=== PATIENT | male | born 1960 | race African-American/Black ===

== ENCOUNTER 2021-04-09 15:08 | Emergency (ER) | payer OTHER ==
[~2021-04-09] VITALS: Ht 170.2 cm; Wt 72.0 kg
[2021-04-09] MEDS ORDERED: HYDROCODONE/ACETAMINOPHEN 5/325MG TABLET PO ONE (18:30)
[2021-04-09] MEDS ORDERED: NAPR500T7 MT (20:37)
[2021-04-09 21:00] VITALS: BP 121/89
== END 2021-04-09 22:00 | disposition home or self-care (01) ==
LOC: ER 15:08
DX: S80.212A Abrasion, left knee, initial encounter (principal); S80.211A Abrasion, right knee, initial encounter; M54.2 Cervicalgia; M25.562 Pain in left knee; M25.561 Pain in right knee; M79.605 Pain in left leg; M79.604 Pain in right leg; Z79.899 Other long term (current) drug therapy; W18.39XA Other fall on same level, initial encounter; Y93.89 Activity, other specified; Y92.89 Other specified places as the place of occurrence of the external cause; Y99.8 Other external cause status
CPT/HCPCS: 72170; 73590; 99284